=== PATIENT | female | born 1965 | race Caucasian/White ===

== ENCOUNTER → 2017-11-23 13:26 | Outpatient (CLI) | payer OTHER, SELFPAY ==
[2017-11-23 15:48] LABS: Hemoglobin 13.9 g/dl (12.0-15.0); Mean Corp Hgb Conc 31.6 g/gl (32-36); Mean Corpuscular Hgb 28.9 pg (27.0-32.0); Mean Corpuscular Volume 91.5 fL (81-99); Mean Platelet Vol. 10.5 fl (6.2-12.0); Platelet Count 253 K/mm3 (150-450); RBC Distribution Width CV 12.9 % (11.6-14.6); RBC Distribution Width SD 43.1 fl (35.1-43.9); Red Blood Count 4.81 M/mm3 (4.2-5.4); Scan Indicated on CBC? Y/N NO; White Blood Count 4.3 K/mm3 (4.4-11.0)
[2017-11-23 16:01] LABS: Follicle Stimulating Hormone 35.4 mIU/mL
== END ==
PROVIDERS: Visit Provider Obstetrics & Gynecology
DX: N95.0 Postmenopausal bleeding (principal)
CPT/HCPCS: 36415; 83001; 85027

== ENCOUNTER 2018-01-13 10:14 | Day surgery (SDC) | payer OTHER, SELFPAY ==
--- NOTE | 2018-01-13 | EMB_PTH ---
PATIENT: AYDE JOHNSTON LOC: [facility] U#:[id number] AGE/SX: 52/F ROOM: RE01/13/[address]: Dr. Lanny Rehman MD : [id number] BED: DIS: 01/13/2018 SPEC #: [id number] RECD: 01/13/18 14:49 STATUS: MARY KATE YOUNG #: [id number] BALDO: 01/13/18 00:[address]: Lanny Rehman DEPT: SURGICAL PATHOLOGY RECD BY: Raf Kirkland ENTERED: 01/16/18 08:53 SP TYPE: ENDOM BX/C DIEGO DR: Dr. Dominga Pedraza MD Tissues: Endometrium, NOS Procedures: Surgery Specimen Level IV HEADER OPERATION: Hysteroscopy, dilation and curettage, polypectomy PRE-OP DIAGNOSIS: Endometrial hyperplasia, stricture and stenosis of cervix, postmenopausal bleeding, leiomyoma of uterus TISSUE SUBMITTED: Endometrial curettings, fibroids, polyps MICROSCOPIC DIAGNOSIS Endometrial curettings, fibroids, polyp: Proliferative endometrium. Fragments of leiomyoma. See comment. ELVIN:nakul 01/17/18 COMMENT The findings may represent submucosal leiomyoma. MICROSCOPIC DESCRIPTION Slides are reviewed. GROSS DESCRIPTION Received in fixative is one container labeled with the patient's name and designated endometrial curettings, fibroids, polyp. The specimen consists of multiple fragments of arora, indurated tissue mixed with blood clot that in aggregate measure 7.5 x 3 x 0.3 cm. The entire specimen is submitted in three cassettes. / ELVIN:nakul 01/16/18 TC:1 CPT: 05764
[2018-01-13 10:47] LABS: Hematocrit 44.9 % (37-47); Hemoglobin 14.6 g/dl (12.0-15.0); Mean Corp Hgb Conc 32.5 g/gl (32-36); Mean Corpuscular Hgb 29.2 pg (27.0-32.0); Mean Corpuscular Volume 89.8 fL (81-99); Mean Platelet Vol. 9.6 fl (6.2-12.0); Platelet Count 232 K/mm3 (150-450); RBC Distribution Width CV 12.5 % (11.6-14.6); RBC Distribution Width SD 40.7 fl (35.1-43.9); White Blood Count 3.4 K/mm3 (4.4-11.0)
[2018-01-13 10:49] VITALS: BP 119/55; PULSE 51; RESP 12; TEMP 36.6; O2SAT 97; BMI 28.8
[2018-01-13 10:49] LABS: Scan Indicated on CBC? Y/N NO
[2018-01-13 11:18] LABS: International Normalized Ratio 1.1; Prothrombin Time (Protime)PT. 13.8 SECONDS (11.7-14.9)
--- NOTE | 2018-01-13 12:08 | PCM.DC.D&C ---
Discharge Diet: No Restrictions Discharge Activity: May not drive while taking narcotic pain medications., May Shower, May Take a Tub Bath May resume sexual activity in: 1 week Call your doctor if you observe: Fever of 101 or Higher, Inability to have a bowel movement, Using more than one pad per hour, Uncontrolled pain Additional Instructions: You may take tylenol for milder pain. Tylenol #3 if pain more severe. Allergies/Adverse Reactions: Allergies No Known Allergies Allergy (Verified 01/13/18 10:44) Medications to take at Discharge Aspirin [Adult Low Dose Aspirin EC] 81 mg PO DAILY 09/02/15 Atenolol [Tenormin (beta winter)] 25 mg PO DAILY 09/02/15 Simvastatin [Zocor] 60 mg PO QHS 09/02/15 Warfarin [Coumadin] 3 mg PO DAILY 09/02/15 Acetaminophen/Codeine #3 [Tylenol#3] 1 tablet PO Q6H PRN PRN 1 Days #4 tablet 01/13/18 Enoxaparin Sodium [Lovenox] 70 mg SQ BID 01/13/18 The following prescriptions were given: Acetaminophen/Codeine #3 [Tylenol#3] 1 tablet PO Q6H PRN PRN 1 Days #4 tablet PRN Reason: Mod-Severe Pain (4-02/01) Primary Care Physician: Dominga Pedraza MD [Primary Care Provider] - Test Results: Test results from this visit will be discussed in further detail at your follow-up appointment, if applicable. Please Follow Up With: Lanny Rehman MD - [phone] When: in two weeks for postop follow up appointment Proposed Discharge Date: 01/13/18
--- NOTE | 2018-01-13 12:13 | DCINST_ITS ---
Discharge Diet: No Restrictions Discharge Activity: May not drive while taking narcotic pain medications., May Shower, May Take a Tub Bath May resume sexual activity in: 1 week Call your doctor if you observe: Fever of 101 or Higher, Inability to have a bowel movement, Using more than one pad per hour, Uncontrolled pain Additional Instructions: You may take tylenol for milder pain. Tylenol #3 if pain more severe. Allergies/Adverse Reactions: Allergies No Known Allergies Allergy (Verified 01/13/18 10:44) Medications to take at Discharge Aspirin [Adult Low Dose Aspirin EC] 81 mg PO DAILY 09/02/15 Atenolol [Tenormin (beta winter)] 25 mg PO DAILY 09/02/15 Simvastatin [Zocor] 60 mg PO QHS 09/02/15 Warfarin [Coumadin] 3 mg PO DAILY 09/02/15 Acetaminophen/Codeine #3 [Tylenol#3] 1 tablet PO Q6H PRN PRN 1 Days #4 tablet Enoxaparin Sodium [Lovenox] 70 mg SQ BID 01/13/18 The following prescriptions were given: Acetaminophen/Codeine #3 [Tylenol#3] 1 tablet PO Q6H PRN PRN 1 Days #4 tablet PRN Reason: Mod-Severe Pain (4-02/01) Primary Care Physician: Dominga Pedraza MD [Primary Care Provider] - Test Results: Test results from this visit will be discussed in further detail at your follow- up appointment, if applicable. Please Follow Up With: Lanny Rehman MD - [phone] When: in two weeks for postop follow up appointment Proposed Discharge Date: 01/13/18
[2018-01-13 13:36] VITALS: BP 119/55; BP 145/73; PULSE 53; RESP 14; TEMP 36.5; O2SAT 97
[2018-01-13 13:45] VITALS: BP 119/55; BP 128/61; PULSE 52; PULSE 55; RESP 14; RESP 16; O2SAT 96; O2SAT 99
[2018-01-13 13:50] VITALS: BP 119/55; BP 125/74; PULSE 53; RESP 14; O2SAT 98
[2018-01-13 13:55] VITALS: BP 119/55; BP 133/71; PULSE 51; RESP 16; TEMP 36.1; O2SAT 100
[2018-01-13] MEDS: Acetaminophen/Codeine #3 Tablet 1 TABLET PO (14:09)
[2018-01-13 14:58] VITALS: BP 119/55; BP 148/61; PULSE 49; RESP 16; TEMP 36.1; O2SAT 100
--- NOTE | 2018-01-14 07:23 | OP.PCM_ITS ---
Operative Report Date of Procedure: 01/13/18 PROCEDURE: Hysteroscopy, Dilation and curettage Dolores resectoscope resection of submucous, pedunculated fibroid Preoperative Diagnosis: Postmenopausal bleeding Thickened endometrial stripe on ultrasound: polyps vs submucous and pedunculated fibroids Postop diagnosis: Postmenopausal bleeding Thickened endometrial stripe on ultrasound: polyps vs submucous and pedunculated fibroids Anesthesia: MAC IV sedation, Hugh Lee CRNA Surgeon: Lanny Rehman MD [employer]ush Worker: None. EBL: Minimal for case Drains: Red Iglesias, clear yellow urine Complications: none Fluids: replacement Findings: Uterus sounds to 8-9 cm. Cervix stenotic. At hysteroscopy: Two submucous fibroids were noted at the lower uterine segment bilaterally, and a third pedunculated (probable) submucous fibroid. noted towards L fundus . Normal appearing, atrophic endometrium. Right tubal ostium visualized but the Left ostium not seen due to fibroids. Narrative account: After the R,B,Alternatives of the procedure were reviewed with the patient , informed consent was obtained. The patient was taken to the operating room with an IV running and placed in dorsal supine position of the operating table. She was given general anesthesia and repositioned to the dorsal lithotomy position and prepped and draped in the usual sterile fashion. A graves speculum was placed into the vagina and the cervix was brought into view. After a 10 cc paracervical block of 1% lidocaine was instilled. A single toothed tenaculum was applied to the posterior lip of the cervix. The cervix was then gently probed and sequentially dilated initially with lacrimal duct probes then to sequentially larger dilators. The cervix was sequentially dilated to allow admission of the hysteroscope into the endometrial cavity. The hysteroscopy was performed with findings noted as above. There were at least three submucous and pedunculated fibroids as noted above. The Dolores Resectoscope was used then to resect the fibroids under direct hysteroscopic visualization. (this required multiple removals and reinsertions of the hysteroscope to keep the visual field free of debris. Upon completion of the fibroid resection, a photo was taken. The procedure was then terminated. Adequate hemostasis was noted. The single toothed tenaculum was removed from the cervix but there was bleeding noted at the tenaculum puncture sites. A ring forceps was applied to each site and the sites and adequate hemostasis was then noted. A RayTec sponge was used to remove any remaining tissue and blood from the upper vagina and cervix. The procedure was terminated. The speculum was removed. The patient was returned to dorsal supine position and awakened from general anesthesia and transferred to her recovery room bed in stable condition after tolerating the procedure well. Sponge, lap, needle and instrument counts were correct x two. Medications given intraoperatively included 1% lidocaine without epinephrine instilled as a paracervical block , and Cefotetan antibiotic prophylaxis IV times one given patients prosthetic heart valve. For a complete listing of the medications given intraoperatively, see the anesthesia record.
== END 2018-01-13 15:01 | disposition home or self-care (01) ==
LOC: SDC 10:16 → AC 10:17
PROVIDERS: Family Provider Internal Medicine; PCP Internal Medicine; Visit Provider Obstetrics & Gynecology
PROC: 0UDB8ZZ Extraction of Endometrium, Via Natural or Artificial Opening Endoscopic (ICD-10-PCS; CPT 58558; principal; 2018-01-13 11:50)
DX: D25.9 Leiomyoma of uterus, unspecified (principal); N95.0 Postmenopausal bleeding; I10 Essential (primary) hypertension; E78.00 Pure hypercholesterolemia, unspecified; Z95.2 Presence of prosthetic heart valve; Z79.01 Long term (current) use of anticoagulants; Z79.82 Long term (current) use of aspirin; Z79.899 Other long term (current) drug therapy; Z86.718 Personal history of other venous thrombosis and embolism; Z86.73 Personal history of transient ischemic attack (TIA), and cerebral infarction without residual deficits
CPT/HCPCS: 00952; 58558; 85027; 85610; 86850; 86900; 88305; J7120

== ENCOUNTER → 2018-02-13 10:18 | Outpatient (CLI) | payer OTHER, SELFPAY ==
[2018-02-13 10:54] LABS: Prothrombin Time (Protime)PT. 36.9 SECONDS (11.7-14.9)
[2018-02-13 11:18] LABS: International Normalized Ratio 3.7
== END ==
PROVIDERS: Family Provider Internal Medicine; PCP Internal Medicine; Referring Provider Nurse Practitioner Primary Care; Visit Provider Nurse Practitioner Primary Care
DX: Q23.0 Congenital stenosis of aortic valve (principal); Z79.01 Long term (current) use of anticoagulants
CPT/HCPCS: 85610

== ENCOUNTER → 2018-02-21 13:38 | Outpatient (CLI) | payer OTHER, SELFPAY ==
[2018-02-21 13:55] LABS: Prothrombin Time (Protime)PT. 36.9 SECONDS (11.7-14.9)
[2018-02-21 14:00] LABS: International Normalized Ratio 3.7
== END ==
PROVIDERS: PCP Internal Medicine; Visit Provider Nurse Practitioner Primary Care
DX: Z79.01 Long term (current) use of anticoagulants (principal); Q23.0 Congenital stenosis of aortic valve; Z51.81 Encounter for therapeutic drug level monitoring
CPT/HCPCS: 85610